=== PATIENT | female | born 1970 ===

== ENCOUNTER 2023-11-29 04:01 | Day surgery (SDC) | payer OTHER ==
[2023-11-21 16:43] VITALS: BMI 35.7
[2023-11-29] MEDS ORDERED: BUPIVACAINE HCL/PF 0.5% (5MG/ML) 10 ML VIAL ONE (07:25)
[2023-11-29] MEDS ORDERED: TRIAMCINOLONE ACET 40MG/1ML VIAL ONE (07:25)
[2023-11-29] MEDS ORDERED: LIDOCAINE HCL/PF 1% SDV 5ML VIAL ONE (07:26)
[2023-11-29 07:45] VITALS: RESP 18; TEMP 97.8
[2023-11-29] MEDS ORDERED: BUPIVACAINE HCL/PF 0.5% (5MG/ML) 10 ML VIAL IJ ONE (09:53)
[2023-11-29] MEDS ORDERED: LIDOCAINE 1% P/F 10 MG/ML VIAL INF ONE (09:53)
[2023-11-29] MEDS ORDERED: IOHEXOL 180 MG/1 ML ML IJ ONE (09:54)
[2023-11-29] MEDS ORDERED: TRIAMCINOLONE ACETONIDE 40 MG/ML 10 ML VIAL IJ ONE (09:55)
[2023-11-29] MEDS ORDERED: ACETAMINOPHEN 500 MG TABLET (FP) PO PRN (11:14)
[2023-11-29 11:25] VITALS: BP 144/78; PULSE 57
== END 2023-11-29 10:29 | disposition home or self-care (01) ==
LOC: JASU-SURG 04:01
PROVIDERS: ATTEND Pain Medicine Pain Medicine
PROC: 3E0U3BZ Introduction of Anesthetic Agent into Joints, Percutaneous Approach (ICD-10-PCS; 2023-11-29)
PROC: 3E0U33Z Introduction of Anti-inflammatory into Joints, Percutaneous Approach (ICD-10-PCS; principal; 2023-11-29 09:15)
DX: M16.11 Unilateral primary osteoarthritis, right hip (principal)
CPT/HCPCS: 76000-TC-FY; 81025